=== PATIENT | male | born 1995 | race Two or more races ===

== ENCOUNTER 2019-10-13 10:04 | Emergency (ER) | payer OTHER ==
[~2019-10-13] VITALS: Ht 177.8 cm; Wt 90.7 kg
[2019-10-13] MEDS ORDERED: ACETAMINOPHEN 325 MG TAB PO ONE ×2 (10:32→11:00)
[2019-10-13 14:37] VITALS: BP 123/89
== END 2019-10-13 14:38 | disposition home or self-care (01) ==
LOC: ER 10:04
DX: U07.1 COVID-19 (principal); R50.9 Fever, unspecified; R05 Cough
CPT/HCPCS: 71045; 87635